=== PATIENT | male | born 1980 | race Caucasian/White ===

== ENCOUNTER 2025-10-04 09:13 | Outpatient (CLI) | payer OTHER ==
--- NOTE | 2025-10-04 10:20 | RADIOLOGY REPORT ---
CLINICAL INDICATION: LEFT HEEL SPUR TECHNIQUE: 2 radiographic views of the calcaneal were obtained. Comparison: None FINDINGS/IMPRESSION: There is no evidence of acute fracture or dislocation. The visualized joint space is well maintained. Small plantar calcaneal enthesophyte The alignment is anatomical. There is no radiopaque foreign body.
== END 2025-10-04 23:59 | disposition home or self-care (01) ==
LOC: RAD 09:13
PROVIDERS: ATTEND Chiropractor
DX: M77.32 Calcaneal spur, left foot (principal)
CPT/HCPCS: 73650